=== PATIENT | male | born 1970 | race Caucasian/White ===

== ENCOUNTER → 2017-05-06 | Day surgery (SDC) | payer BC ==
--- NOTE | ~2017-05-06 | EKG ---
[place] [address] [address] 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 : 1970 Requested By: Grace Berg Order Number: [id number] MD: Yomi Calzada Measurements Intervals [place] Rate: 70 P: 17 LA: 180 QRS: 3 QRSD: 88 T: 86 QT: 378 QTc: 408 Interpretive Statements Sinus rhythm Abnormal R-wave progression, late transition Baseline wander in lead(s) V1 No previous ECG available for comparison Electronically Signed On 05-06-2017 17:20:01 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
--- NOTE | ~2017-05-06 | O ---
[facility] [place] [address] OPERATIVE REPORT Name: JOHN LOZANO Room #: REG [facility].#: [id number] Admission: 05/06/17 Attend Phys: Grace Berg, Discharge: Date of : 70 Report #: [id number] THIS REPORT FOR: //name// CC: Marcelina Berg DATE OF SERVICE: 05/06/2017 PREOPERATIVE DIAGNOSIS: Right carpal tunnel syndrome. POSTOPERATIVE DIAGNOSIS: Right carpal tunnel syndrome. PROCEDURE PERFORMED: Right endoscopic carpal tunnel release. SURGEON: Dr. Grace Berg. ANESTHESIA: General mask. ESTIMATED BLOOD LOSS: Minimal. TOURNIQUET TIME: 12 minutes. COMPLICATIONS: None. CONDITION: Stable. DISPOSITION: Recovery room. INDICATIONS: The patient is a 46-year-old male with the abovementioned diagnosis. He elected for operative treatment. The risks, benefits, alternatives, and complications were discussed that included but were not limited to infection, damage to blood vessels or nerves, and incomplete relief of his symptoms. Informed consent was obtained. The correct extremity was identified and labeled by myself. After verbal confirmation of the patient, as well as visual confirmation, signed informed consent was discussed. DESCRIPTION OF PROCEDURE: The patient was brought back to the Operating Room and placed on the operating table in supine position. He received preoperative antibiotics. Tourniquet was placed over, padding the patient's right upper extremity. The right upper extremity was sterilely prepped and draped in the usual fashion. A final time-out was taken to verify the correct patient, operative procedure, and operative site, all concurred. The arm was elevated and exsanguinated, and then tourniquet inflated. The entire procedure was done with the aid of 3.5 times loupe magnification. Next, a transverse incision was made a few millimeters proximal to the distal wrist crease in line with ulnar border of the palmar longus tendon. Dissection was carried down through the [address] [address] OPERATIVE REPORT Name: JOHN LOZANO Room #: REG [facility]..#: [id number] Admission: 05/06/17 Attend Phys: Grace Berg, Discharge: Date of : 70 Report #: [id number] subcutaneous tissue with tenotomy scissors. The antebrachial fascia was identified and incised. It was then incised for few millimeters proximal. Next, an oblique incision was made at distal hook of the hamate in line with the ring finger. The fat was elevated off the fascia, and the fascia was carefully incised. Next, a Biggers elevator was placed through the carpal tunnel from proximal to distal to elevate any significant tissue off the undersurface of the transverse carpal ligament. Next, a blunt trocar and camera were inserted in the carpal tunnel from proximal to distal with the wrist in hyperextension and digital pressure distally to avoid injury to superficial arch. Next, the blunt trocar was removed, the camera was inserted and nice transverse fibers at the undersurface of the transverse carpal ligament were easily identified. A hook ablator was brought in distally and the transverse carpal ligament was transected distally. Next, the camera was inserted distally and the transverse carpal ligament was transected proximally. Next, the camera and cannula were withdrawn and visualized the cut ends of the transverse carpal ligament. Each wound was explored and there were no remnants of the transverse carpal ligament ____ looked to be in excellent condition. The release was all the way from the antebrachial fascia ____. The wounds were thoroughly irrigated. The skin was closed with 4-0 nylon suture. The wounds were infiltrated with approximately 5 mL of mixture of 0.25% Marcaine and 1% lidocaine. He was placed in a bulky mildly compressive dressing. All fingers were pink with brisk capillary refill at the conclusion of the case. After deflation of the tourniquet, all sponge and needle counts were correct. The patient was transferred to the postoperative recovery room in stable condition. <ELECTRONICALLY SIGNED> By: Grace Berg MD 06/06/17 1526 1737 1921 Grace Berg MD /nt
[2017-05-06 15:32] VITALS: BP 132/87
[2017-05-06 17:51] VITALS: BP 132/87
== END ==
LOC: OR 10:36
DX: G56.01 Carpal tunnel syndrome, right upper limb (principal)
CPT/HCPCS: 50010; 50101; 50386; 56526; 57006; 57091; 62110; 62900; 70005